=== PATIENT | male | born 1975 | race Asian ===

== ENCOUNTER 2019-03-24 15:11 | Emergency (ER) | payer SELFPAY ==
[~2019-03-24] VITALS: Ht 162.6 cm; Wt 81.8 kg
[2019-03-24] MEDS ORDERED: CloNIDine HCL 0.2 MG TABLET PO ONE (17:00)
[2019-03-24] MEDS ORDERED: IBUPROFEN 800 MG TABLET PO ONE (17:00)
[2019-03-24 17:46] VITALS: BP 150/98
== END 2019-03-24 17:49 | disposition home or self-care (01) ==
LOC: EMS 15:13
DX: S60.420A Blister (nonthermal) of right index finger, initial encounter (principal); I10 Essential (primary) hypertension; X58.XXXA Exposure to other specified factors, initial encounter; Y93.89 Activity, other specified; Y92.89 Other specified places as the place of occurrence of the external cause; Y99.8 Other external cause status
CPT/HCPCS: 93005